=== PATIENT | female | born 1980 | race Caucasian/White ===

== ENCOUNTER → 2020-02-25 11:48 | Outpatient (BNVA) | payer SELFPAY | PROVIDERS: Family Provider Family Medicine; PCP Nurse Practitioner; Visit Provider Nurse Practitioner Family | DX: I10 Essential (primary) hypertension (principal) | CPT/HCPCS: 80053; 84484; 85025 ==

== ENCOUNTER → 2020-06-20 08:13 | Outpatient (BNVA) | payer SELFPAY | PROVIDERS: Family Provider Family Medicine; PCP Nurse Practitioner; Visit Provider Nurse Practitioner | DX: E03.8 Other specified hypothyroidism (principal); I10 Essential (primary) hypertension; E78.2 Mixed hyperlipidemia | CPT/HCPCS: 80053; 80061; 84443; 85025 ==

== ENCOUNTER → 2020-11-17 08:38 | Outpatient (BNVA) | payer SELFPAY | PROVIDERS: Family Provider Family Medicine; PCP Nurse Practitioner; Visit Provider Nurse Practitioner | DX: E03.8 Other specified hypothyroidism (principal); I10 Essential (primary) hypertension; F41.9 Anxiety disorder, unspecified; E78.2 Mixed hyperlipidemia; N72 Inflammatory disease of cervix uteri; Z12.4 Encounter for screening for malignant neoplasm of cervix | CPT/HCPCS: 80053; 80061; 84443; 85025; 88175 ==

== ENCOUNTER → 2021-02-16 16:05 | Outpatient (BNVA) | payer OTHER, SELFPAY | PROVIDERS: Family Provider Family Medicine; PCP Nurse Practitioner; Visit Provider Nurse Practitioner Family | DX: N73.9 Female pelvic inflammatory disease, unspecified (principal); N93.0 Postcoital and contact bleeding; N89.8 Other specified noninflammatory disorders of vagina | CPT/HCPCS: 87491; 87591; 87661 ==

== ENCOUNTER → 2021-07-17 09:35 | Outpatient (BNVA) | payer OTHER, SELFPAY | PROVIDERS: Family Provider Family Medicine; PCP Nurse Practitioner; Visit Provider Nurse Practitioner | DX: I10 Essential (primary) hypertension (principal); F41.9 Anxiety disorder, unspecified; E78.2 Mixed hyperlipidemia; E03.8 Other specified hypothyroidism; L98.9 Disorder of the skin and subcutaneous tissue, unspecified | CPT/HCPCS: 80053; 80061; 84443; 85025 ==

== ENCOUNTER → 2021-07-20 16:46 | Outpatient (BNVA) | payer OTHER, SELFPAY | PROVIDERS: Family Provider Family Medicine; PCP Nurse Practitioner; Visit Provider Nurse Practitioner | DX: L98.9 Disorder of the skin and subcutaneous tissue, unspecified (principal) | CPT/HCPCS: 88304 ==

== ENCOUNTER 2022-04-02 | Outpatient (CLI) | payer BC, SELFPAY | END 2022-04-02 00:01 | disposition home or self-care (01) | LOC: RAD 04-13 06:39 | PROVIDERS: Family Provider Family Medicine; PCP Nurse Practitioner; Visit Provider Nurse Practitioner Family | DX: R19.00 Intra-abdominal and pelvic swelling, mass and lump, unspecified site (principal) | CPT/HCPCS: 80053; 84443; 85025 ==

== ENCOUNTER → 2022-11-07 14:38 | Outpatient (BNVA) | payer BC, SELFPAY | PROVIDERS: Family Provider Family Medicine; PCP Nurse Practitioner; Visit Provider Nurse Practitioner | DX: E78.2 Mixed hyperlipidemia (principal); E66.9 Obesity, unspecified; I10 Essential (primary) hypertension; F41.9 Anxiety disorder, unspecified; E03.8 Other specified hypothyroidism; Z12.31 Encounter for screening mammogram for malignant neoplasm of breast | CPT/HCPCS: 80053; 80061; 84443 ==

== ENCOUNTER → 2023-07-08 15:18 | Outpatient (BNVA) | payer OTHER, SELFPAY | PROVIDERS: Family Provider Family Medicine; PCP Nurse Practitioner; Visit Provider Nurse Practitioner | DX: Z12.72 Encounter for screening for malignant neoplasm of vagina (principal); E03.8 Other specified hypothyroidism; R73.9 Hyperglycemia, unspecified; E78.2 Mixed hyperlipidemia; F41.9 Anxiety disorder, unspecified; I10 Essential (primary) hypertension; Z79.890 Hormone replacement therapy; E66.9 Obesity, unspecified | CPT/HCPCS: 80053; 80061; 83036; 84443; 88175 ==

== ENCOUNTER → 2023-08-20 14:22 | Outpatient (BNVA) | payer OTHER, SELFPAY | PROVIDERS: Family Provider Family Medicine; PCP Nurse Practitioner; Visit Provider Nurse Practitioner Family | DX: R05.9 Cough, unspecified (principal) | CPT/HCPCS: 87400; 87426 ==

== ENCOUNTER → 2024-02-06 16:38 | Outpatient (BNVA) | payer OTHER, SELFPAY | PROVIDERS: Family Provider Family Medicine; PCP Nurse Practitioner; Visit Provider Nurse Practitioner | DX: E03.8 Other specified hypothyroidism (principal) | CPT/HCPCS: 80053; 80061; 84439; 84443; 84481 ==

== ENCOUNTER 2024-02-25 14:17 | Outpatient (CLI) | payer OTHER, SELFPAY ==
--- NOTE | 2024-02-25 14:30 | MM_ITS ---
WS: [id number] BILATERAL 3D TOMOSYNTHESIS DIGITAL SCREENING MAMMOGRAPHY WITH CAD CLINICAL INFORMATION: Z12.31 - Encounter for screening mammogram for malignant ... HISTORY: Screening mammogram. No current complaints. History of breast reduction COMPARISON: Baseline TECHNIQUE: Bilateral CC and MLO views. FINDINGS: Scattered fibroglandular densities bilaterally. No suspicious focal mass, asymmetry, calcifications, or architectural distortion. No evidence of malignancy. Dystrophic calcifications. Lucent centered ca lcifications. MM/MM [facility] tomosynthesis [id number] IMPRESSION: DENSITY: There are scattered areas of fibroglandular density. BI-RADS: 2 - Benign. FOLLOW UP: 1 Year Follow-up Recommend return to annual screening mammography.
== END 2024-02-25 14:18 | disposition home or self-care (01) ==
LOC: RAD 14:18
PROVIDERS: Family Provider Family Medicine; PCP Nurse Practitioner; Visit Provider Nurse Practitioner
DX: Z12.31 Encounter for screening mammogram for malignant neoplasm of breast (principal)
CPT/HCPCS: 77063; 77067

== ENCOUNTER → 2024-08-24 16:48 | Outpatient (BNVA) | payer OTHER, SELFPAY | PROVIDERS: PCP Nurse Practitioner; Visit Provider Nurse Practitioner | DX: I10 Essential (primary) hypertension (principal); E03.8 Other specified hypothyroidism; Z11.3 Encounter for screening for infections with a predominantly sexual mode of transmission | CPT/HCPCS: 80053; 80061; 84443; 86592; 87491; 87591; 87806 ==

== ENCOUNTER 2024-10-15 11:27 | Emergency (ER) | payer OTHER, SELFPAY ==
[2024-10-15 11:34] VITALS: BP 131/77; PULSE 85; RESP 18; TEMP 36.8; O2SAT 98; BMI 30.9
--- NOTE | 2024-10-15 11:46 | ED_ITS ---
HPI - General Adult 2 General: Chief complaint: General Medical Stated complaint: high bp Time Seen by Provider: 10/15/24 11:39 Source: patient Mode of arrival: ambulatory Limitations: no limitations History of Present Illness: Patient is a 44-year-old female presenting to the emergency department with 2 days of high blood pressure readings-highest being 135/110 jose. She has a history of hypertension, hyperlipidemia, hypothyroidism, and anxiety. States she took two of her bp meds this morning. States she normally does not monitor blood pressures at home but over the past 2 days she can had headaches, intermittent tingling to arms/hands and elevated heart rate up to 105 thus making her check it frequently at home. Reports history of migraines but states her headache feels different today. Reporting significant increased stress/anxiety recently. She also reports that she may be dehydrated-thinks maybe her headache is related to this. Blood pressure upon arrival is 131/77. Onset (ago): day(s) Location: head, chest and upper extremity Severity: mild Pain Consistency: intermittent Relieving factors: none Exacerbating factors: none Associated symptoms: Reports chest pain, headache(s) and nausea; Deny confusion, dyspnea, malaise, rash, palpitations, syncope or vomiting Treatments prior to arrival: other (states she took 2 bp meds this AM) Related Data Previous Rx's ?Medication ?Instructions ?Recorded atorvastatin 40 mg tablet 40 mg PO DAILY #90 tabs 08/08 01/01 estradiol 1 mg tablet 1 mg PO DAILY #90 tabs 08/24 exenatide 5 mcg/dose (250 5 mcg (0.02 mL) SUBCUT BID # 1.2 mL 08/24/24 mcg/mL)1.2 mL subcutaneous pen injector (Carl) hydroxyzine HCl 25 mg tablet 25 mg PO BID PRN anxiety #90 tabs 08/24/24 levothyroxine 50 mcg tablet 50 mcg PO DAILY #90 tabs 0 08/24/24 (Synthroid) losartan 50 mg-hydrochlorothiazide 1 tab PO DAILY #90 tabs 08/24/24 12.5 mg tablet sertraline 50 mg tablet (Zoloft) 50 mg PO DAILY #30 ta bs 08/24/24 Allergies Allergy/AdvReac Type Severity Reaction Status Date / Time Sulfa (Sulfonamide Allergy Severe Vomiting Verified 08/24/24 16:23 Antibiotics) Penicillins Allergy Hives Verified 08/24/24 16:23 Review of Systems 2 Const: Denies: fever(s), chills, body aches, change in appetite, fatigue or malaise Eyes: Denies: change in vision, blurry vision, photophobia, floaters or seeing flashes Card: Reports: chest pain and other (elevated heart rate-105); Denies: palpitations, irregular heart rhythm, edema, swelling of feet/ankles, lightheadedness, syncope, pre-syncope, dyspnea on exertion, orthopnea, leg pain with exertion or acrocyanosis Resp: Denies: dyspnea GI: Reports: nausea; Denies: abdominal pain, vomiting, diarrhea or change in bowel habits : Denies: flank pain, difficulty voiding, dysuria, urinary frequency, urinary urgency or urinary hesitancy Musc: Denies: neck pain, back pain, extremity pain, extremity swelling, joint pain, joint swelling or joint redness Skin/Breast: Denies: rash Neuro: Reports: headache(s) and other (tingling in bilateral hands and feet- resolved now); Denies: numbness in extremities, weakness in extremities, sensory changes, lack of coordination, frequent falls, dizziness, confusion, Slurred speech present or difficulty communicating thoughts Psych: Reports: anxiety PFSH ED 2 PFSH: Medical History Hormone replacement therapy (HRT) Anxiety Mixed hyperlipidemia Metabolic syndrome Adult onset hypothyroidism Essential (primary) hypertension Surgical History History of tonsillectomy and adenoidectomy H/O reduction mammoplasty History of tubal ligation Family History Other Diabetes Hypertension Social History Smoking and tobacco/nicotine status: current every day tobacco/nicotine user Second hand smoke exposure: Yes Alcohol intake: never Substance/Drug Use: never Adopted: No Caregiver/support person: No Lives independently: Yes Household members: children Housing: House Marital status: Legally Number of children: 2 service: No Current occupational status: employed Current occupation: [employer] Do you think of yourself as: Straight/Heterosexual Current gender identity: Female Physical Exam 2 Const: COMMON NORMALS: no acute distress, average body habitus, patient oriented x3, no limitations, healthy appearing, alert and well nourished G ENERAL APPEARANCE: cooperative HENMT: COMMON NORMALS: normocephalic and atraumatic HEAD & SCALP: normal to inspection, normocephalic and atraumatic FACE & SINUS: normal facial exam and face symmetric Eye: COMMON NORMALS: Equal, round and reactive pupils present, EOMs intact bilaterally and conjunctivae normal GENERAL EYE: appearance normal, both eyes and all related structures and normal light reflex CONJUNCTIVA: Yes conjunctivae normal PUPIL: Yes Equal, round and reactive pupils present D IRECT OPHTHALMOSCOPY: Yes normal light reflex Neck/C-Spine: COMMON NORMALS: full ROM and no JVD Chest: COMMONS NORMALS: normal inspection of the chest and normal palpation of entire chest wall Resp: COMMON NORMALS: normal respiratory effort and clear to auscultation bilaterally AUSCULTATION: clear to auscultation bilaterally Cardio: COMMON NORMALS: no JVD, regular rate, regular rhythm, S1 normal heart sound present and S2 normal heart sound present RATE: regular rate RHYTHM: regular rhythm HEART SOUNDS: S1 normal heart sound present and S2 normal heart sound present GI: COMMON NORMALS: Normal to inspection, nondistended, normoactive bowel sounds present, Soft to palpation, non-tender and no masses PALPATION: Yes Soft to palpation Extremity: COMMON NORMALS: normal to inspection, capillary refill normal, no clubbing, cyanosis or edema, no calf tenderness and no pedal edema GENERAL: Y es normal exam except as noted Neuro: HAMLET COMA SCALE: document GCS findings [place] coma scale eye opening: Spontaneous [place] coma scale verbal response: Orientated [place] coma scale motor response: Obey commands Hamlet coma scale total score: 15 COMMON NORMALS: patient oriented x3, CN's II-XII intact bilaterally, moves all extremities, no focal motor deficits and no sensory deficits noted S ENSORIUM/ORIENTATION: Yes alert SENSORY EXAM: No sensory level loss detected Course 2 Vital Signs: Vital signs: Vital Signs Temperature 98.2 F 10/15/24 11:34 Pulse Rate 84 10/15/24 12:30 Respiratory Rate 16 10/15/24 11:57 Blood Pressure 115/59 10/15/24 12:30 Pulse Oximetry 97 10/15/24 12:30 Oxygen Delivery Me thod Room Air 10/15/24 12:30 MDM - General Adult Medical Decision Making Patient clinically appears in absolutely no acute distress. On repeat examination, blood pressure is 115/59. She tells me she feels much better after some fluids. Her headache is improving. She has no chest pain. She has no other symptoms at this time. She is requesting to go home. Requesting a work note over the next 2 days. Her blood work here overall is completely unremarkable. CXR and EKG also obtained and unremarkable. Discussed follow-up with primary care. Medical Records I reviewed the patient's medical records. Lab Data I reviewed the patient's lab results. 10/15/24 12:07 10/15/24 12:07 Radiology Impressions Chest X-Ray 10/15/24 12:04 IMPRESSION: No acute chest abnormality. Presumed hiatal hernia. Laboratory Results WBC 10.81 10^3/uL (3.29-11.43) 10/15/24 12:07 RBC 4.87 10^6/uL (3.85-5.65) 10/15/24 12:07 Hgb 14.40 g/dL (11.27-16.99) 10/15/24 12:07 Hct 43.6 % (36-47) 10/15/24 12:07 MCV 89.5 fl (85-98) 10/15/24 12:07 MCH 29.6 pg (27-33) 10/15/24 12:07 MCHC 33.0 g/dL (30-55) 10/15/24 12:07 RDW 13.0 % (12.1-15.1) 10/15/24 12:07 Plt Count 304 10^3/cmm (157-399) 10/15/24 12:07 MPV 11.3 fL (7.4-10.4) H 10/15/24 12:07 Neut % (Auto) 63.2 % 10/15/24 12:07 Lymph % (Auto) 29.5 % 10/15/24 12:07 [place] % (Auto) 5.8 % 10/15/24 12:07 Eos % (Auto) 0.6 % 10/15/24 12:07 Baso % (Auto) 0.5 % 10/15/24 12:07 Neut # (Auto) 6.83 10^3/uL (1.8-7.7) 10/15/24 12:07 Lymph # (Auto) 3.2 10^3/uL (0.8-4.8) 10/15/24 12:07 [place] # (Auto) 0.6 10^3/uL (0.2-0.9) 10/15/24 12:07 Eos # (Auto) 0.1 10^3/uL (0.0-0.8) 10/15/24 12:07 Baso # (Auto) 0.1 10^3/uL (0.0-0.1) 10/15/24 12:07 Nucleated RBC % (auto) 0 % 10/15/24 12:07 Nucleated RBCs # 0.0 /100WBC 10/15/24 12:07 Sodium 140 mmol/L (136-145) 10/15/24 12:07 Potassium 3.9 mmol/L (3.5-5.1) 10/15/24 12:07 Chloride 99 mmol/L (98-107) 10/15/24 12:07 Carbon Dioxide 25 mmol/L (22-29) 10/15/24 12:07 Anion Gap 19.9 (5-19) H 10/15/24 12:07 BUN 11 mg/dL (6-20) 10/15/24 12:07 Creatinine 0.7 mg/dL (0.5-0.9) 10/15/24 12:07 GFR Calculation 91.3 mL/min (90-130) 10/15/24 12:07 Glucose 100 mg/dL (65-115) 10/15/24 12:07 Calculated Osmolality 289 mOsm/kg (285-295) 10/15/24 12:07 Calcium 10.3 mg/dL (8.5-10.5) 10/15/24 12:07 Total Bilirubin 0.5 mg/dL (0.15-1.2) 10/15/24 12:07 AST 16 U/L (0-32) 10/15/24 12:07 ALT 15 U/L (0-33) 10/15/24 12:07 Alkaline Phosphatase 98 U/L (35-105) 10/15/24 12:07 Troponin T Baseline < 6 ng/L (0-10) 10/15/24 12:07 Total Protein 7.6 g/dL (6.6-8.7) 10/15/24 12:07 Albumin 4.9 g/dL (3.5-5.2) 10/15/24 12:07 Globulin 2.7 g/dL (1.3-4.6) 10/15/24 12:07 HCG, Qual Negative (Negative) 10/15/24 12:07 Urine Color Yellow (Yellow) 10/15/24 12:12 Urine Appearance Clear (CLEAR) 10/15/24 12:12 Urine pH 6.5 (5-7) 10/15/24 12:12 Ur Specific [place] 1.005 (1.005-1.030) 10/15/24 12:12 Urine Protein Negative (Negative) 10/15/24 12:12 Urine Glucose (UA) Negative (Normal) 10/15/24 12:12 Urine Ketones Trace (Negative) 10/15/24 12:12 Urine Blood Negative (Negative) 10/15/24 12:12 Urine Nitrate Negative (Negative) 10/15/24 12:12 Urine Bilirubin Negative (Negative) 10/15/24 12:12 Urine Urobilinogen 0.2 mg/dL (Negative) 10/15/24 12:12 Ur Leukocyte Esterase Negative (Negative) 10/15/24 12:12 Urine RBC 0-2 /hpf (0-2) 10/15/24 12:12 Urine WBC 0-5 /hpf (0-5) 10/15/24 12:12 Ur Squamous Epith Cells 0-5 /hpf (0-5) 10/15/24 12:12 Amorphous Sediment Not Reportable 10/15/24 12:12 Urine Bacteria None seen /hpf (NONE) 10/15/24 12:12 Hyaline Casts 0-4 /lpf H 10/15/24 12:12 All radiology interpretation(s) finalized by discharge Discharge Plan Discharge Patient Disposition: Home Clinical Impression: Anxiety, Essential (primary) hypertension Headache Qualifiers: Headache type: unspecified Headache chronicity pattern: acute headache I ntractability: not intractable Qualified Code(s): R51.9 - Headache, unspecified Condition: Stable Prescriptions: No Action atorvastatin 40 mg tablet 40 mg PO DAILY Qty: 90 1RF estradiol 1 mg tablet 1 mg PO DAILY Qty: 90 1RF hydroxyzine HCl 25 mg tablet 25 mg PO BID PRN (Reason: anxiety) Qty: 90 1RF levothyroxine [Synthroid] 50 mcg tablet 50 mcg PO DAILY Qty: 90 1RF losartan-hydrochlorothiazide 50-12.5 mg tablet 1 tab PO DAILY Qty: 90 1RF sertraline [Zoloft] 50 mg tablet 50 mg PO DAILY Qty: 30 5RF exenatide [Byetta] 5 mcg/dose (250 mcg/mL) 1.2 mL pen injector 5 mcg SUBCUT BID Qty: 1.2 2RF Discharge Orders: Discharge ED (Routine); Ordered 10/15/24 Ordered By: Clotilde Leonard Referrals: Ayana Dyson, METALLURG[facility] SPECIALIST-C [Primary Care Provider, Family Practice] Activity Restrictions/Additional Instructions: As we discussed, you may follow-up with primary care for further evaluation of symptoms. 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
--- NOTE | 2024-10-15 11:51 | ECG_ITS ---
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 Measurements Intervals [place] Rate: 65 P: 40 [place]: 138 QRS: 38 QRSD: 96 T: 19 QT: 397 QTc: 414 Interpretive Statements SINUS RHYTHM MODERATE ST DEPRESSION [0.05+ mV ST DEPRESSION] No previous ECG available for comparison Electronically Signed On 10-16-2024 13:42:13 CDT by Eddie Garnett M.D. [email or web address]
[2024-10-15 11:57] VITALS: BP 151/96; PULSE 81; RESP 16; O2SAT 93
[2024-10-15 12:00] VITALS: BP 133/99; PULSE 81; O2SAT 97
--- NOTE | 2024-10-15 12:04 | XR_ITS ---
WS: [id number] XR chest 1V portable [id number] REASON FOR EXAM: chest pain FINDINGS: Moderate tortuosity and ectasia of the thoracic aorta for age. Normal heart size. Masslike density at the level of the esophageal hiatus, presumed hiatal hernia. Calcified granulomas disease in both hemithoraces. No acute pulmonary parenchymal or pleural abnormality. Bony thorax without significant abnormality. XR/XR chest 1V portable [id number] IMPRESSION: No acute chest abnormality. Presumed hiatal hernia.
[2024-10-15] MEDS: sodium chloride 0.9% 1,000 ML 999 ML IV (12:18)
[2024-10-15 12:21] LABS: Basophils # 0.1 10^3/uL (0.0-0.1); Basophils % 0.5 %; Eosinophils # 0.1 10^3/uL (0.0-0.8); Eosinophils % 0.6 %; Hematocrit 43.6 % (36-47); Lymphocytes # 3.2 10^3/uL (0.8-4.8); Lymphocytes % 29.5 %; Mean Corpuscular Hemoglobin 29.6 pg (27-33); Mean Corpuscular Volume 89.5 fl (85-98); Mean Platelet Volume 11.3 fL (7.4-10.4); Monocytes # 0.6 10^3/uL (0.2-0.9); Monocytes % 5.8 %; Neutrophils # 6.83 10^3/uL (1.8-7.7); Neutrophils % 63.2 %; Nucleated Red Blood Cells % 0 %; Platelet Count 304 10^3/cmm (157-399); Red Blood Count 4.87 10^6/uL (3.85-5.65); White Blood Count 10.81 10^3/uL (3.29-11.43)
[2024-10-15 12:28] LABS: Bilirubin Urine Negative (Negative); Blood Urine Negative (Negative); Glucose Urine UA Negative (Normal); Ketones Urine Trace (Negative); Leukocyte Esterase Urine Negative (Negative); Nitrate Urine Negative (Negative); Protein Urine Negative (Negative); Specific Gravity, Urine 1.005 (1.005-1.030); Urine Appearance Clear (CLEAR); Urine Color Yellow (Yellow); Urobilinogen Urine 0.2 mg/dL (Negative); pH Urine 6.5 (5-7)
[2024-10-15 12:30] VITALS: BP 115/59; PULSE 84; O2SAT 97
[2024-10-15 12:32] LABS: Troponin(5th) Baseline < 6 ng/L (0-10)
[2024-10-15 12:33] LABS: Alanine Aminotransferase 15 U/L (0-33); Albumin Level 4.9 g/dL (3.5-5.2); Alkaline Phosphatase 98 U/L (35-105); Anion Gap 19.9 (5-19); Aspartate Amino Transferase 16 U/L (0-32); Blood Urea Nitrogen 11 mg/dL (6-20); Calcium 10.3 mg/dL (8.5-10.5); Carbon Dioxide 25 mmol/L (22-29); Chloride 99 mmol/L (98-107); Creatinine Clr Calc Pharmacy 99.3372; Globulin 2.7 g/dL (1.3-4.6); Glomerular Filtration Rate 91.3 mL/min (90-130); Glucose 100 mg/dL (65-115); Osmolality Calculated 289 mOsm/kg (285-295); Potassium 3.9 mmol/L (3.5-5.1); Sodium 140 mmol/L (136-145); Total Bilirubin 0.5 mg/dL (0.15-1.2); Total Protein 7.6 g/dL (6.6-8.7)
[2024-10-15 12:34] LABS: Add Urine Microscopic? YES; Bacteria Urine None Seen /hpf; Hyaline Casts Urine 0-4 /lpf; RBC Urine 0-2 /hpf (0-2); Squamous Epithelial Cell Urine 0-5 /hpf (0-5); WBC Urine 0-5 /hpf (0-5)
[2024-10-15 12:51] LABS: Add Urine Culture? No
[2024-10-15 12:55] LABS: HCG, Serum Qual Negative (Negative)
[2024-10-15 13:10] VITALS: BP 113/65; PULSE 81; O2SAT 97
== END 2024-10-15 13:05 | disposition home or self-care (01) ==
PROVIDERS: Emergency Provider Physician Assistant; PCP Nurse Practitioner
DX: F41.9 Anxiety disorder, unspecified (principal); I10 Essential (primary) hypertension; R51.9 Headache, unspecified; Z72.0 Tobacco use; E78.2 Mixed hyperlipidemia
CPT/HCPCS: 71045; 80053; 81001; 84484; 84703; 85025; 93005; 96360; 99285; J7030